=== PATIENT | male | born 1955 | race African-American/Black ===

== ENCOUNTER 2020-07-26 10:45 | Outpatient (REF) | payer MEDICARE, BC, SELFPAY | END 2020-07-26 10:46 | disposition home or self-care (01) | LOC: HO.LAB 10:45 | PROVIDERS: Visit Provider Internal Medicine | DX: Z20.828 Contact with and (suspected) exposure to other viral communicable diseases (principal) | CPT/HCPCS: U0003 ==

== ENCOUNTER 2020-11-24 10:05 | Emergency (ER) | payer MEDICARE, BC, SELFPAY ==
[2020-11-24 10:08] VITALS: BP 118/71; PULSE 91; RESP 17; TEMP 36.2; O2SAT 100; BMI 33.2
[2020-11-24 11:04] LABS: MANUAL DIFF FLAG NO
[2020-11-24 11:06] LABS: Basophils Percent Auto 0.1 % (0-2); Eosinophils Percent Auto 0.4 % (0-4); Hematocrit 40.7 % (42-52); Hemoglobin 13.1 g/dl (14.0-18.0); Imm Gran Abs Auto 0.05 X10*3/uL (0.00-0.03); Imm Gran Pct Auto 0.4 % (0.0-0.4); Lymphocytes Percent Auto 18.1 % (20-40); Mean Corpuscular HGB Conc 32.2 g/dl (31.0-36.0); Mean Corpuscular Hemoglobin 27.1 pg (27.0-33.0); Mean Corpuscular Volume 84.1 fL (80-98); Mean Platelet Volume 11.3 fL (9.4-12.4); Monocytes Absolute Auto 1.3 X10*3/uL (0.1-1.2); Monocytes Percent Auto 11.5 % (2-11); Neutrophils Absolute Auto 7.8 X10*3/uL (2.0-8.3); Neutrophils Percent Auto 69.5 % (45-73); Platelet Count 171 X10*3/uL (160-400); Red Blood Count 4.84 X10*6/uL (4.60-5.80); Red Cell Distribution Width 14.5 % (11.0-16.0); White Blood Count 11.2 X10*3/uL (4.8-10.8)
[2020-11-24] MEDS: Morphine Sulfate 4 MG/ML CARTRIDGE IVPUSH ×2 (11:09→12:33)
[2020-11-24] MEDS: ondansetron HCL 4 MG/2 ML VIAL IVPUSH (11:10)
[2020-11-24] MEDS: Lidocaine HCl 1 % 20 ML VIAL 10 ML INFILTRATI (11:10)
[2020-11-24 11:24] LABS: Lactic Acid 1.3 mmol/L (0.5-2.0)
[2020-11-24 11:29] LABS: Alanine Aminotransferase 11 U/L (0-40); Albumin Level 4.2 g/dL (3.5-5.0); Alkaline Phosphatase 78 U/L (39-117); Anion Gap 13 (12-20); Aspartate Amino Transferase 14 U/L (5-37); Bilirubin Total 0.8 mg/dL (0.0-1.0); Blood Urea Nitrogen 23 mg/dL (9-16); Calcium 9.6 mg/dL (8.4-10.2); Carbon Dioxide 27 mmol/L (22-29); Chloride 103 mmol/L (96-108); Creatinine Clr Calc Pharmacy 58.4; Estimated Glomerular Filt Rate 43; Glucose Random 137 mg/dL (60-115); Potassium 4.5 mmol/L (3.3-5.1); Sodium 138 mmol/L (135-145); Total Protein 7.6 g/dL (6.5-8.0)
[2020-11-24 11:30] VITALS: BP 128/77; PULSE 79; RESP 14; TEMP 36.6; O2SAT 96
[2020-11-24 12:17] LABS: MN% 10.4 %; PMN% 89.6 %; RBC Synovial Fluid 0.004 X10*6/uL
[2020-11-24 12:30] LABS: Lymphocytes Synovial Fluid 4 %; Monocytes Synovial Fluid 3 %; Neutrophils Synovial Fluid 92 %
[2020-11-24 12:31] LABS: BF Shift QC OK YES; Man Diluent Bkgrd OK YES; Other Cells Synovial Fluid 1
--- NOTE | 2020-11-24 13:16 | PC.NURSE ---
1130 pt reported no pain at rest, knee aspirated by david cantrell and dr adorno
--- NOTE | 2020-11-24 14:45 | ED_ITS ---
HPI - General Adult General Chief complaint: Extremity Problem Stated complaint: knee pain Time Seen by Provider: 11/24/20 10:24 Source: patient Mode of arrival: ambulatory Limitations: no limitations History of Present Illness HPI narrative: 64-year-old male who presents emergency department for evaluation of right knee swelling x3 days. Patient states that the swelling came on gradually but got progressively worse. He states that his knee is very painful. He states that as a constant, throbbing pain which is 9/10 at its worst. He states that his similar presentations 6-7 years ago when he had osteoarthritis of his knee and required drainage. He also states he has a history of gout. He denied fever, chills, chest pain, shortness of breath, cough, nausea, vomiting or diarrhea. Related Data Previous Rx's Medication Instructions Recorded colchicine See Rx Instructions .ROUTE 11/24/20 .COMPLEX #6 cap morphine 15 mg PO Q4-6H PRN #10 tab 11/24/20 prednisone 60 mg PO DAILY 7 Days #21 tab 11/24/20 Allergies Allergy/AdvReac Type Severity Reaction Status Date / Time No Known Allergies Allergy Unverified 06/13/20 15:02 bee stings Allergy Unknown Uncoded 09/25/16 00:00 pt states no allergies to Allergy Unknown Uncoded 09/25/16 00:00 food Review of Systems Review of Systems: Yes all other systems are reviewed and are negative Neurologic: Reports Abnormal speech present [facility] Past Medical History [facility] Narrative: Patient also has a history of osteoarthritis and gout. He states that he smokes 1 pack of cigarettes per day times 54 years, he drinks alcohol occasionally, he denies drug use . Medical History Aortic aneurysm HTN (hypertension) Social History Social History Smoked in Last 30 Days: No Use of substances other than those prescribed or required for medical reasons: No Advance Directives: No Advance Directives Information Provided: No Physical Exam Vital Signs: Vital Signs: Last Vital Signs Temp 97.8 F 11/24/20 11:30 Pulse 79 11/24/20 11:30 Resp 14 11/24/20 11:30 BP 128/77 11/24/20 11:30 Pulse Ox 96 11/24/20 11:30 Body Mass Index 33.2 Const: General: cooperative and healthy appearing Orientation/consciousness: oriented to person and oriented to place Limitations: no limitations HENMT: Head: Yes normal to inspection, Yes normocephalic and Yes atraumatic Ears: external ears normal General nose exam: Normal external nose present Face and sinus: Yes normal facial exam Mouth: Normal oral and palatal mucosa present Throat: Yes posterior oropharynx normal Eyes: Periorbital: periorbital findings normal Eyelids: Yes eyelids normal Conjunctivae: conjunctivae normal Sclerae: sclerae normal Corneas: corneas normal Pupils: Equal, round and reactive pupils present Direct Ophthalmoscopy: normal light reflex Neck: Neck: Yes full ROM, Yes no lymphadenopathy, Yes no meningeal signs, Yes trachea midline and Yes supple Chest: Chest palpation & inspection: normal inspection of the chest and normal palpation of entire chest wall Resp: Effort & Inspection: normal respiratory effort and able to speak in complete sentences Auscultation: clear to auscultation bilaterally Cardio: Rate: regular rate Rhythm: regular rhythm Heart sounds: S1 normal heart sound present, S2 normal heart sound present and no murmurs GI: Inspection: Yes normal to inspection Palpation (GI): Soft to palpation, nontender, no guarding, not rigid and No hepatosplenomegaly present : General: Yes no CVA tenderness Back/Spine/Pelvis: Back: no CVA tenderness Cervical Spine: normal cervical lordosis Thoracic/Lumbar Spine: thoracic and lumbar spine normal to inspe ction Skin: Lesions: no lesions Rashes: no rashes Wounds: no wounds Neuro: General: oriented to person, oriented to place and no meningeal signs Cranial nerves: Yes Equal, round and reactive pupils present Cognition (Neuro): normal cognition Speech: Abnormal speech present Motor exam (neuro): 5/5 motor strength present throughout Extrem: General: Yes other (Right knee with large joint effusion, warm to the touch, no erythema) Psych: Appearance: well kempt Mental Status: mental status grossly normal Speech and movement: Normal speech and movement present Affect: normal affect Attitude: cooperative Thought process: Normal thought process present Thought content: Normal thought content present Course Course Course Narrative: 64-year-old male who presents emergency department for evaluation right knee pain which started 3 days prior and got gradually worse. He also significant swelling and warmth to the knee. Patient does have a history of osteoarthritis with inflammatory effusion and gout in the past. The patient's laboratory evaluation revealed [place] [address]. Patient's BUN was slightly elevated 23 with that elevated creatinine of 1.6. The patient's right knee joint was aspirated and 45 mL of viscous yellow cloudy fluid was obtained. The patient has 84,000 white blood cells, mainly polys. The crystal analysis revealed monosodium urate crystals consistent with gout. The Gram stain was negative. I did discuss these findings with the patient. I do not think the patient has a septic joint in his presentation is more consistent with gout. The patient will be treated with prednisone 60 mg once a day for 7 days and colchicine. He is also advised to take Tylenol and for pain not relieved by Tylenol he was given a prescription for morphine. I did discuss addiction with the patient and he understands that morphine can be addicting medication. The patient does have an elevated creatinine I suspect this is related to his lisinopril therefore he will need to follow-up with his doctor to get a repeat creatinine discuss whether he needs to stop lisinopril. 1508: [employer] search did reveal multiple prescriptions for oxycodone and 2019, I do think that a narcotic medication is appropriate this time secondary to the severity of pain associated with gout. Procedures Joint Aspiration/Injection Joint Asp./Inject. 1: Time Out Performed: Yes Side of body: right Joint Aspirated: knee Ultrasound Guidance: No Skin Prep: Povidone-Iodine1% Local Anesthetic: lidocaine 1% Amount of anesthesia used (mL): 5 Fluid Obtained: viscous Total fluid obtained (mL): 45 Complications: none Medical Decision Making Lab Data Result diagrams: 11/24/20 10:59 11/24/20 10:59 Labs: Lab Results 11/24/20 11/24/20 11/24/20 Range/Units 10:58 10:59 10:59 WBC 11.2 H (4.8-10.8) X10*3/uL RBC 4.84 (4.60-5.80) X10*6/uL Hgb 13.1 L (14.0-18.0) g/dl Hct 40.7 L (42-52) % MCV 84.1 (80-98) fL MCH 27.1 (27.0-33.0) pg MCHC 32.2 (31.0-36.0) g/dl RDW 14.5 (11.0-16.0) % Plt Count 171 (160-400) X10*3/uL MPV 11.3 (9.4-12.4) fL Immature Gran % (Auto) 0.4 (0.0-0.4) % Neut % (Auto) 69.5 (45-73) % Lymph % (Auto) 18.1 L (20-40) % [place] % (Auto) 11.5 H (2-11) % Eos % (Auto) 0.4 (0-4) % Baso % (Auto) 0.1 (0-2) % Lymph # (Auto) 2.0 (1.2-4.9) X10*3/uL [place] # (Auto) 1.3 H (0.1-1.2) X10*3/uL Eos # (Auto) 0.0 (0.0-0.4) X10*3/uL Baso # (Auto) 0.0 (0.0-0.2) X10*3/uL Abs Immat Gran (auto) 0.05 H (0.00-0.03) X10*3/uL Absolute Neuts (auto) 7.8 (2.0-8.3) X10*3/uL Absolute Nucleated RBC 0.000 (0.0-0.012) X10*3/uL Nucleated RBC % (auto) 0.0 (0.0-0.2) /100WBC Sodium 138 (135-145) mmol/L Potassium 4.5 (3.3-5.1) mmol/L Chloride 103 (96-108) mmol/L Carbon Dioxide 27 (22-29) mmol/L Anion Gap 13 (12-20) BUN 23 H (9-16) mg/dL Creatinine 1.60 H (0.5-1.4) mg/dL Estim Creat Clear Calc 58.4 Estimated GFR 43 Random Glucose 137 H (60-115) mg/dL Lactic Acid 1.3 (0.5-2.0) mmol/L Calcium 9.6 (8.4-10.2) mg/dL Total Bilirubin 0.8 (0.0-1.0) mg/dL AST 14 (5-37) U/L ALT 11 (0-40) U/L Alkaline Phosphatase 78 (39-117) U/L Total Protein 7.6 (6.5-8.0) g/dL Albumin 4.2 (3.5-5.0) g/dL Synovial Source Synovial WBC X10*3/uL Synovial RBC X10*6/uL Synovial Neutrophils % Synovial Lymphocytes % Synovial Monocytes % Synovial Other Cells 11/24/20 Range/Units 11:55 WBC (4.8-10.8) X10*3/uL RBC (4.60-5.80) X10*6/uL Hgb (14.0-18.0) g/dl Hct (42-52) % MCV (80-98) fL MCH (27.0-33.0) pg MCHC (31.0-36.0) g/dl RDW (11.0-16.0) % Plt Count (160-400) X10*3/uL MPV (9.4-12.4) fL Immature Gran % (Auto) (0.0-0.4) % Neut % (Auto) (45-73) % Lymph % (Auto) (20-40) % [place] % (Auto) (2-11) % Eos % (Auto) (0-4) % Baso % (Auto) (0-2) % Lymph # (Auto) (1.2-4.9) X10*3/uL [place] # (Auto) (0.1-1.2) X10*3/uL Eos # (Auto) (0.0-0.4) X10*3/uL Baso # (Auto) (0.0-0.2) X10*3/uL Abs Immat Gran (auto) (0.00-0.03) X10*3/uL Absolute Neuts (auto) (2.0-8.3) X10*3/uL Absolute Nucleated RBC (0.0-0.012) X10*3/uL Nucleated RBC % (auto) (0.0-0.2) /100WBC Sodium (135-145) mmol/L Potassium (3.3-5.1) mmol/L Chloride (96-108) mmol/L Carbon Dioxide (22-29) mmol/L Anion Gap (12-20) BUN (9-16) mg/dL Creatinine (0.5-1.4) mg/dL Estim Creat Clear Calc Estimated GFR Random Glucose (60-115) mg/dL Lactic Acid (0.5-2.0) mmol/L Calcium (8.4-10.2) mg/dL Total Bilirubin (0.0-1.0) mg/dL AST (5-37) U/L ALT (0-40) U/L Alkaline Phosphatase (39-117) U/L Total Protein (6.5-8.0) g/dL Albumin (3.5-5.0) g/dL Synovial Source Knee, right Synovial WBC 84.020 X10*3/uL Synovial RBC 0.004 X10*6/uL Synovial Neutrophils 92 % Synovial Lymphocytes 4 % Synovial Monocytes 3 % Synovial Other Cells 1 Discharge Plan Discharge Clinical Impression: Effusion of knee joint right, Elevated serum creatinine Gout attack Qualifiers: Gout site: knee Gout etiology: unspecified cause Laterality: right Qualified Code(s): M10.9 - Gout, unspecified Patient Disposition: Home, Self-Care Instructions: Gout (ED) Additional Instructions: Your synovial fluid in your knee had 84,000 white blood cells, this is less than 100,000 suggesting you do not have an infection. You had monosodium urate crystals in your synovial fluid which is consistent with gout. The gram stain did not reveal any bacteria which is reassuring. I did order a culture of your fluid and if it grows bacteria we will call you. I am going to treat your gout with the following medications: Prednisone 20 mg pills 3 pills once a day for 7 days. Colchicine 0.6 mg pills, 2 pills then 1 pill 1 hour later. You can repeat this in 3 days. Extra-strength Tylenol 500 mg pills, 2 pills every 4-6 hours as needed for pain. For pain not relieved by prednisone, colchicine and Tylenol, take morphine 15 mg pills, 1 pill every 4 hours as needed for pain. This medication will make you sleepy and constipated. This medication is a narcotic medication and can be addicting. If your concerned about addiction do not get this prescription filled or you can ask the pharmacist for less pills. Your kidney numbers are little elevated. Your BUN is 23 and your creatinine is 1.6. This may be related to lisinopril. You need to make a follow-up appointment with your primary care doctor and have this test repeated in 1 week. Do not stop. Lisinopril unless your instructed to do so by your doctor. Follow-up with your doctor in 2 days. Please return to the emergency department if your symptoms get worse or if you develop any symptoms that are concerning to you. Prescriptions: New colchicine 0.6 mg capsule See Rx Instructions .ROUTE .COMPLEX Qty: 6 RF: 0 prednisone 20 mg tablet 60 mg PO DAILY 7 Days Qty: 21 RF: 0 morphine 15 mg tablet 15 mg PO Q4-6H PRN (Reason: pain) Qty: 10 RF: 0
== END 2020-11-24 15:30 | disposition home or self-care (01) ==
PROVIDERS: Emergency Provider Emergency Medicine Emergency Medical Services; PCP Family Medicine
DX: M10.9 Gout, unspecified (principal); M25.461 Effusion, right knee; M25.561 Pain in right knee; I10 Essential (primary) hypertension; R79.89 Other specified abnormal findings of blood chemistry; Z79.899 Other long term (current) drug therapy
CPT/HCPCS: 20610; 36415; 80053; 83605; 85025; 87071; 87073; 87205; 89051; 89060; 96361; 96374; 96375; 99284; J2270; J2405

== ENCOUNTER 2021-02-14 15:05 | Outpatient (REF) | payer MEDICARE, BC, SELFPAY ==
[2021-02-14 15:49] LABS: COVID-19 Test Negative (Negative)
== END 2021-02-14 15:06 | disposition home or self-care (01) ==
LOC: HO.LAB 15:05
PROVIDERS: Visit Provider Internal Medicine
DX: Z20.822 Contact with and (suspected) exposure to COVID-19 (principal)
CPT/HCPCS: 36415; 87635; C9803